=== PATIENT | male | born 1995 | race Caucasian/White ===

== ENCOUNTER 2016-08-14 18:44 | Emergency (ER) | payer SELFPAY ==
--- NOTE | 2016-08-14 19:19 | RAD ---
CHEST TWO VIEW 08/14/16 HISTORY: Chest pain. COMPARISON: None. FINDINGS: The lungs are clear. No pneumothorax or effusion. The cardiac silhouette and mediastinal contours ar e within normal limits. No acute osseous abnormality. IMPRESSION: No acute cardiopulmonary process. POS: [facility]
[2016-08-14 19:56] LABS: Acetaminophen Less than 3.0 mcg/mL (10.0-30.0); Alcohol Less than 10 mg/dL (Less than 10); Salicylate Less than 5.0 mg/dL (15.0-30.0)
[2016-08-14 19:58] LABS: ALT (SGPT) 17 U/L (0-55); AST (SGOT) 23 U/L (5-34); Albumin 4.3 g/dL (3.5-5.0); Alkaline Phosphatase 71 U/L (40-150); Anion Gap 13 mmol/L (10-20); BUN (Urea Nitrogen) 13 mg/dL (8.9-20.6); Bilirubin, Total 0.3 mg/dL (0.2-1.2); Calc. Creatinine Clearance 0 mL/min (70-130); Calcium 9.4 mg/dL (7.8-10.44); Carbon Dioxide 27 mmol/L (22-29); Chloride 105 mmol/L (98-107); Estimated GFR-MDRD 84; Globulin 2.7 g/dL (2.4-3.5); Glucose 99 mg/dL (70-105); Potassium 3.7 mmol/L (3.5-5.1); Sodium 141 mmol/L (136-145)
[2016-08-14 20:05] LABS: #Basophils 0.1 thou/uL (0.0-0.2); #Eosinphils 0.3 thou/uL (0.0-0.7); #Lymphocytes 2.6 thou/uL (1.20-3.40); #Monocytes 0.7 thou/uL (0.11-0.59); #Neutrophils 5.7 thou/uL (1.40-6.50); %Basophils 1.2 % (0.0-1.0); %Eosinophils 2.9 % (0.0-10.0); %Lymphocytes 27.6 % (21.0-51.0); %Monocytes 7.7 % (0.0-10.0); %Neutrophils 60.6 % (42.0-75.0); CKMB 1.1 ng/mL (0-6.6); Mean Corpuscular HGB CONC 35.2 g/dL (32.0-36.0); Mean Corpuscular Hemoglobin 30.9 pg (27.0-31.0); Mean Corpuscular Volume 87.8 fl (80.0-94.0); Mean Platelet Volume 7.6 fL (7.4-10.4); Platelet Count 267 thou/uL (130-400); RBC Distribution Width 11.4 % (11.5-14.5); Red Blood Cell (RBC) Count 4.84 mill/uL (4.70-6.10); White Blood Cell (WBC) Count 9.5 thou/uL (4.8-10.8)
[2016-08-14 20:20] LABS: Amphetamine Not Detected (NotDetected); Barbiturates Screen Not Detected (NotDetected); Benzodiazepine Screen Not Detected (NotDetected); Cocaine Metabolite Screen Not Detected (NotDetected); Medtox Control Line Valid? VALID (VALID); Methadone Not Detected (NotDetected); Methamphetamine Not Detected (NotDetected); Opiate Screen Not Detected (NotDetected); Oxycodone Screen Not Detected (NotDetected); Phencyclidine (PCP) Not Detected (NotDetected); THC/Cannabinoid Screen Not Detected (NotDetected); Tricyclic Screen Not Detected (NotDetected)
[2016-08-14 20:21] LABS: Bilirubin Negative (Negative); Blood, Urine Negative (Negative); Clarity Clear (Clear); Glucose, Urine (Dipstick) Negative (Negative); Leukocyte Negative (Negative); Nitrite Negative (Negative); Protein, Urine (Dipstick) Negative (Neg-Trace); Urobilinogen 0.2 mg/dL (0.2-1.0)
== END 2016-08-14 20:32 | disposition home or self-care (01) ==
LOC: MADERS 18:44
DX: R07.89 Other chest pain (principal); F17.210 Nicotine dependence, cigarettes, uncomplicated
CPT/HCPCS: 36415; 71020; 80053; 80306; 80307; 81003; 82553; 84484; 85025; 85379; 93005

== ENCOUNTER 2017-03-24 10:23 | Emergency (ER) | payer SELFPAY ==
--- NOTE | 2017-03-24 11:03 | RAD ---
THREE VIEWS RIGHT WRIST: Comparison: 12-01-16 History: Fall yesterday on the wrist, right wrist pain. FINDINGS: Three views of the right wrist shows no evidence of acute fracture or dislocation. No focal soft tis jael swelling is seen. No degenerative changes are present. IMPRESSION: Unremarkable exam. POS: [facility]
[2017-03-24] MEDS ORDERED: HYDROcodone/Acetaminophen 10/325 mg Tablet ONE (11:47)
[2017-03-24] MEDS ORDERED: Naproxen 500 MG TAB ONE (11:47)
== END 2017-03-24 11:50 | disposition home or self-care (01) ==
LOC: MADERS 10:23
DX: S60.211A Contusion of right wrist, initial encounter (principal); F17.210 Nicotine dependence, cigarettes, uncomplicated; W19.XXXA Unspecified fall, initial encounter

== ENCOUNTER 2017-04-05 00:31 | Emergency (ER) | payer SELFPAY ==
[2017-04-05] MEDS ORDERED: Midazolam HCl 10 mg/2 ml Vial ONE ×2 (02:12→03:11)
[2017-04-05] MEDS ORDERED: Fentanyl 100 MCG/2 ML VIAL ONE (02:12)
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
[2017-04-05] MEDS ORDERED: Sodium Chloride 0.9% 1,000 ML BAG ONE (14:18)
== END 2017-04-05 04:00 | disposition short-term general hospital (02) ==
LOC: MADERS 00:31
DX: S03.01XA Dislocation of jaw, right side, initial encounter (principal); S00.83XA Contusion of other part of head, initial encounter; F17.210 Nicotine dependence, cigarettes, uncomplicated; Y04.8XXA Assault by other bodily force, initial encounter
CPT/HCPCS: 70486; 99152; 99153; J2250; J3010; J7050